=== PATIENT | male | born 1975 | race Caucasian/White ===

== ENCOUNTER 2020-07-19 14:31 | Emergency (ER) | payer OTHER ==
[2020-07-19 16:15] LABS: HEMOGLOBIN 14.3 gm/dl (14.0-17.5); RED BLOOD COUNT 4.65 M/UL (4.20-5.50); WHITE BLOOD COUNT 8.5 K/UL (4.5-11.0)
[2020-07-19 16:36] LABS: BUN/CREATININE RATIO 12 (0-10)
[2020-07-19] MEDS ORDERED: OMNICEF 300 MG300 MG PO (19:59)
== END 2020-07-19 20:22 | disposition home or self-care (01) ==
LOC: ER1 14:31
PROVIDERS: Physician Assistant Medical
DX: N20.0 Calculus of kidney (principal); K52.9 Noninfective gastroenteritis and colitis, unspecified; F10.10 Alcohol abuse, uncomplicated; I12.9 Hypertensive chronic kidney disease with stage 1 through stage 4 chronic kidney disease, or unspecified chronic kidney disease; N18.9 Chronic kidney disease, unspecified; F17.210 Nicotine dependence, cigarettes, uncomplicated
CPT/HCPCS: 71046; 80053; 81001; 83690; 85025; 85610; 85730; 87086; 96374; 99284; J2405; Q9967

== ENCOUNTER 2020-10-12 19:26 | Emergency (ER) | payer OTHER ==
[~2020-10-12 19:26] MED LIST: OMNICEF 300 MG300 MG PO
[2020-10-12 21:47] LABS: HEMOGLOBIN 11.2 gm/dl (14.0-17.5); RED BLOOD COUNT 3.84 M/UL (4.20-5.50); WHITE BLOOD COUNT 13.5 K/UL (4.5-11.0)
[2020-10-12 22:07] LABS: BUN/CREATININE RATIO 14 (0-10)
[2020-10-13] MEDS ORDERED: IBUPROFEN600 MG PO (04:38)
== END 2020-10-13 04:45 | disposition home or self-care (01) ==
LOC: ER1 19:26
PROVIDERS: Physician Assistant
DX: S20.211A Contusion of right front wall of thorax, initial encounter (principal); F17.210 Nicotine dependence, cigarettes, uncomplicated; W22.8XXA Striking against or struck by other objects, initial encounter
CPT/HCPCS: 71111; 73030; 80053; 85025; 96374; 99283; J2405

== ENCOUNTER 2020-10-14 12:05 | Inpatient (IN) | payer OTHER ==
[~2020-10-14] VITALS: Ht 185.4 cm; Wt 127.0 kg
[~2020-10-14 12:05] MED LIST changes: +IBUPROFEN600 MG PO
[2020-10-14 12:44] LABS: HEMOGLOBIN 10.2 gm/dl (14.0-17.5); RED BLOOD COUNT 3.47 M/UL (4.20-5.50)
[2020-10-14 12:57] LABS: WHITE BLOOD COUNT 9.5 K/UL (4.5-11.0)
[2020-10-14 13:19] LABS: BUN/CREATININE RATIO 17 (0-10)
[2020-10-15 01:09] LABS: HEMOGLOBIN 8.5 gm/dl (14.0-17.5); WHITE BLOOD COUNT 7.9 K/UL (4.5-11.0)
[2020-10-15 01:11] LABS: RED BLOOD COUNT 2.82 M/UL (4.20-5.50)
[2020-10-15 01:25] LABS: BUN/CREATININE RATIO 18 (0-10)
[2020-10-16 03:26] LABS: BUN/CREATININE RATIO 13 (0-10)
--- NOTE | 2020-10-16 11:00 | NUR ---
NO CHANGES FROM PREVIOUS ASSESSMENT
--- NOTE | 2020-10-16 16:00 | NUR ---
NO CHANGES FROM PREVIOUS ASSESSMENT
--- NOTE | 2020-10-17 11:00 | NUR ---
NO CHANGES FROM PREVIOUS ASSESSMENT
[2020-10-17 14:06] LABS: HEMOGLOBIN 9.7 gm/dl (14.0-17.5)
[2020-10-17 14:12] LABS: RED BLOOD COUNT 3.28 M/UL (4.20-5.50)
[2020-10-17 14:16] LABS: BUN/CREATININE RATIO 10 (0-10)
[2020-10-18 03:44] LABS: HEMOGLOBIN 8.8 gm/dl (14.0-17.5); RED BLOOD COUNT 2.97 M/UL (4.20-5.50); WHITE BLOOD COUNT 7.4 K/UL (4.5-11.0)
[2020-10-18 03:57] LABS: BUN/CREATININE RATIO 12 (0-10)
[2020-10-19 02:56] LABS: HEMOGLOBIN 8.9 gm/dl (14.0-17.5); RED BLOOD COUNT 2.98 M/UL (4.20-5.50); WHITE BLOOD COUNT 6.1 K/UL (4.5-11.0)
[2020-10-19] MEDS ORDERED: LOPRESSOR 50 MG50 MG PO (12:26)
[2020-10-19] MEDS ORDERED: KLONOPIN0.5 MG PO (12:26)
[2020-10-19] MEDS ORDERED: DILTIAZEM 24HR240 M1 PO (12:26)
[2020-10-19] MEDS ORDERED: ASPIRIN EC81 MG PO (12:26)
[2020-10-19] MEDS ORDERED: DIGOXIN250 MCG PO (12:26)
[2020-10-19] MEDS ORDERED: THERAGRAN M TAB1 EA PO (12:26)
[2020-10-19] MEDS ORDERED: PROTONIX 40 MG40 M1 PO (12:26)
[2020-10-19] MEDS ORDERED: HYDROCODON-ACE1 EAC2 PO (12:26)
== END 2020-10-19 13:58 | disposition home or self-care (01) | DRG 309 ==
LOC: ER1 12:05 → PROG CARE 14:07 → CDU 14:07 → PROG CARE 14:07
PROVIDERS: Emergency Medicine; Physician Assistant Medical; ADMIT Internal Medicine Infectious Disease
DX: I48.0 Paroxysmal atrial fibrillation (principal); D62 Acute posthemorrhagic anemia; S20.214A Contusion of middle front wall of thorax, initial encounter; S40.011A Contusion of right shoulder, initial encounter; W18.30XA Fall on same level, unspecified, initial encounter; F10.10 Alcohol abuse, uncomplicated; S46.011A Strain of muscle(s) and tendon(s) of the rotator cuff of right shoulder, initial encounter; E87.6 Hypokalemia; K76.0 Fatty (change of) liver, not elsewhere classified; K74.60 Unspecified cirrhosis of liver; F17.200 Nicotine dependence, unspecified, uncomplicated; D69.6 Thrombocytopenia, unspecified; Z82.49 Family history of ischemic heart disease and other diseases of the circulatory system
CPT/HCPCS: ECHO; 36415; 71045; 73060; 73080; 73090; 73221; 80048; 80053; 82550; 82553; 83735; 83874; 83880; 84439; 84443; 84484; 85025; 85027; 93005; 93306; 93971; 96374; 96375; 99285; G0378; J1160; J3475; U0002

== ENCOUNTER 2020-11-20 04:43 | Emergency (ER) | payer OTHER ==
[~2020-11-20 04:43] MED LIST changes: +ASPIRIN EC81 MG PO; +DIGOXIN250 MCG PO; +DILTIAZEM 24HR240 M1 PO; +HYDROCODON-ACE1 EAC2 PO; +KLONOPIN0.5 MG PO; +LOPRESSOR 50 MG50 MG PO; +PROTONIX 40 MG40 M1 PO; +THERAGRAN M TAB1 EA PO
[2020-11-20] MEDS ORDERED: NAPROSYN500 MG PO (10:31)
== END 2020-11-20 10:44 | disposition home or self-care (01) ==
LOC: ER1 04:43
DX: M54.5 Low back pain (principal); I48.91 Unspecified atrial fibrillation; I10 Essential (primary) hypertension; F17.210 Nicotine dependence, cigarettes, uncomplicated; Z87.442 Personal history of urinary calculi; Z79.01 Long term (current) use of anticoagulants; Z79.899 Other long term (current) drug therapy
CPT/HCPCS: 96372; 99283; J1885

== ENCOUNTER 2020-12-14 20:56 | Observation (INO) | payer OTHER ==
[~2020-12-14] VITALS: Ht 185.4 cm; Wt 127.0 kg
[~2020-12-14 20:56] MED LIST changes: +NAPROSYN500 MG PO
[2020-12-14 21:35] LABS: HEMOGLOBIN 16.8 gm/dl (14.0-17.5); RED BLOOD COUNT 5.61 M/UL (4.20-5.50); WHITE BLOOD COUNT 16.6 K/UL (4.5-11.0)
[2020-12-14 22:15] LABS: BUN/CREATININE RATIO 25 (0-10)
[2020-12-15] MEDS ORDERED: PROZAC20 MG PO (05:34)
[2020-12-15] MEDS ORDERED: ALLOPURINOL100 MG PO (05:34)
[2020-12-15] MEDS ORDERED: THIAMINE HCL100 MG PO (05:35)
[2020-12-15] MEDS ORDERED: TRAZODONE HCL100 MG PO (05:36)
[2020-12-15] MEDS ORDERED: HYDROXYZINE HCL25 MG PO (05:37)
[2020-12-15 06:26] LABS: HEMOGLOBIN 13.3 gm/dl (14.0-17.5); RED BLOOD COUNT 4.54 M/UL (4.20-5.50); WHITE BLOOD COUNT 10.8 K/UL (4.5-11.0)
[2020-12-15 06:55] LABS: BUN/CREATININE RATIO 29 (0-10)
== END 2020-12-16 15:05 | disposition home or self-care (01) ==
LOC: ER1 20:56 → PROG CARE 12-15 01:09 → CDU 12-15 01:09 → PROG CARE 12-15 05:34
PROVIDERS: Emergency Medicine; ADMIT Internal Medicine
DX: F10.129 Alcohol abuse with intoxication, unspecified (principal); F10.139 Alcohol abuse with withdrawal, unspecified; I48.0 Paroxysmal atrial fibrillation; K70.9 Alcoholic liver disease, unspecified; R94.31 Abnormal electrocardiogram [ECG] [EKG]; E87.1 Hypo-osmolality and hyponatremia; I48.91 Unspecified atrial fibrillation; F17.210 Nicotine dependence, cigarettes, uncomplicated; R77.8 Other specified abnormalities of plasma proteins; E87.2 Acidosis; E86.0 Dehydration; D72.829 Elevated white blood cell count, unspecified; E66.9 Obesity, unspecified; Z68.36 Body mass index [BMI] 36.0-36.9, adult; Z20.822 Contact with and (suspected) exposure to COVID-19; Z79.82 Long term (current) use of aspirin; Z79.899 Other long term (current) drug therapy; Z98.84 Bariatric surgery status; Y90.8 Blood alcohol level of 240 mg/100 ml or more
CPT/HCPCS: 36415; 71045; 80053; 80162; 80307; 81001; 82150; 82550; 82553; 82800; 83605; 83690; 83735; 83874; 84484; 85025; 85610; 85730; 87040; 93005; 96365; 96367; 96375; 99285; G0378; G0480; J2405; J2550; J3411; J3475; J7030; Q9967; U0002